=== PATIENT | female | born 1990 | race Caucasian/White ===

== ENCOUNTER 2020-02-13 23:13 | Emergency (ER) | payer MEDICAID, SELFPAY ==
[~2020-02-13] VITALS: Ht 157.5 cm; Wt 66.4 kg
[2020-02-13 23:15] VITALS: BP 143/75
--- NOTE | 2020-02-14 00:13 | NUR ---
pt to room from lobby
[2020-02-14] MEDS ORDERED: LIDOCAINE-MPF 1%, 5ML INFIL ONE (00:30)
[2020-02-14] MEDS ORDERED: BUPIVACAINE 0.25% INFIL ONE (00:30)
[2020-02-14] MEDS ORDERED: LIDOCAINE-MPF 1%, 5ML ONE (00:41)
[2020-02-14] MEDS ORDERED: BUPIVACAINE 0.25% ONE (00:41)
== END 2020-02-14 02:05 | disposition home or self-care (01) ==
LOC: ED 02-14 00:29
DX: S92.532B Displaced fracture of distal phalanx of left lesser toe(s), initial encounter for open fracture (principal); X58.XXXA Exposure to other specified factors, initial encounter; Y93.89 Activity, other specified; Y92.89 Other specified places as the place of occurrence of the external cause; Y99.8 Other external cause status
CPT/HCPCS: 99284